=== PATIENT | female | born 1945 ===

== ENCOUNTER 2021-09-06 20:43 | Emergency (ER) | payer SELFPAY ==
[2021-09-06 20:43] VITALS: BP 145/72; PULSE 92; RESP 18; TEMP 36.4; O2SAT 93
--- NOTE | 2021-09-06 20:45 | RT.EKG_ITS ---
APPROVED REPORT Exam: Resting ECG Reason for Exam: sob Patient Location: E HR:92 bpm ECG Measurements Heart Rate 92 AXIS VA 155 P 79 QRSd 83 QRS -33 QT 358 T 62 QTc 442 Conclusion Sinus rhythm...normal P axis, V-rate 60- 99 Left axis deviation...QRS axis (-30,-90) Physician: no stemi
[2021-09-06 20:49] VITALS: RESP 18
--- NOTE | 2021-09-06 20:51 | ED.GENADUL_ITS ---
Discharge Plan Discharge Details Chief Complaint: SOB ED Provider: Leo Boucher General Mode of arrival: EMS . Date/Time Provider Initiated Documentation: 09/06/21 20:51 . Limitations to Documentation: no limitations . Information obtained by: patient, RN notes reviewed and old records reviewed . Stated Complaint: SOB PINA: 3 PFSH Social History Smoking/Tobacco Use Status: Current every day Tobacco Type: cigarettes Smoking risk assessment performed?: Yes Alcohol Intake: never Drug use: Never Substance use type: does not use Do you feel safe at home: Yes Do you feel safe in your relationship?: Yes Course Vital Signs Vital signs: Vital Signs Temperature 97.5 F L 09/06/21 20:43 Pulse 92 H 09/06/21 20:43 Respiratory Rate 18 09/06/21 20:43 Blood Pressure 145/72 H 09/06/21 20:43 Pulse Oximetry 93 09/06/21 20:43 Temperature 97.5 F L 09/06/21 20:43 Temperature Source Tympanic 09/06/21 20:43 Pulse 92 H 09/06/21 20:43 Respiratory Rate 18 09/06/21 20:49 Respiratory Effort 09/06/21 20:49 Respiratory Depth Normal 09/06/21 20:49 Respiratory Pattern Normal 09/06/21 20:49 Blood Pressure 145/72 H 09/06/21 20:43 Blood Pressure Position Supine 09/06/21 20:43 Pulse Oximetry 93 09/06/21 20:43 Oxygen Delivery Method Room Air 09/06/21 20:43 Oxygen Flow Rate 0 09/06/21 20:43 Pain Level 0 09/06/21 20:43
== END 2021-09-06 21:55 ==
LOC: ER 20:56
PROVIDERS: Emergency Provider Emergency Medicine
DX: R69 Illness, unspecified (principal)
CPT/HCPCS: 93005; 93010